=== PATIENT | male | born 1945 | race American Indian/Alaskan Native ===

== ENCOUNTER 2017-06-29 13:25 | Emergency (ER) | payer SELFPAY ==
[2017-06-29 15:04] VITALS: BP 125/80; PULSE 75; RESP 16; TEMP 97.9; O2SAT 100
--- NOTE | 2017-06-29 16:30 | ED PDOC ---
HPI: General Adult Time Seen by Provider: 06/29/17 13:56 Chief Complaint (Nursing): Lower Extremity Problem/Injury Chief Complaint (Provider): Generalized weakness History Per: Patient History/Exam Limitations: no limitations Onset/Duration Of Symptoms: Days (x1) Severity: None Pain Scale Rating Of: 0 Additional Complaint(s): Karson Yap is 72 year old male, with no past medical history, who was brought to the emergency department by EMS after he was found sleeping outside on the street. Patient has no medical complaints. He reports that he didn't sleep all night so he slept outside. He doesn't see any doctors. He wanted to eat kosher foot. He denies any suicidal or homicidal ideation, fever, chills or cough. No further medical complaints. PMD: None provided. Past Medical History Reviewed: Historical Data, Nursing Documentation, Vital Signs Vital Signs: Last Vital Signs Temp 97.9 F 06/29/17 14:00 Pulse 75 06/29/17 14:00 Resp 16 06/29/17 14:00 BP 125/80 06/29/17 14:00 Pulse Ox 100 06/29/17 14:00 - Family History Family History: States: Unknown Family Hx - Social History Current smoker - smoking cessation education provided: No Alcohol: Social Drugs: Denies - Allergies Allergies/Adverse Reactions: Allergies Allergy/AdvReac Type Severity Reaction Status Date / Time No Known Allergies Allergy Verified 06/29/17 13:29 Review of Systems ROS Statement: Except As Marked, All Systems Reviewed And Found Negative Constitutional: Negative for: Fever, Chills Respiratory: Negative for: Cough Psych: Negative for: Suicidal ideation (or homicidal ideation) Physical Exam - Reviewed Nursing Documentation Reviewed: Yes Vital Signs Reviewed: Yes - Physical Exam Appears: Positive for: Well (comfortable, and disheveled), Non-toxic, No Acute Distress Head Exam: Positive for: ATRAUMATIC, NORMAL INSPECTION, NORMOCEPHALIC Skin: Positive for: Normal Color, Warm, Dry Eye Exam: Positive for: EOMI, Normal appearance, PERRL Neck: Positive for: Normal, Painless ROM, Supple Cardiovascular/Chest: Positive for: Regular Rate, Rhythm Respiratory: Negative for: Respiratory Distress Extremity: Positive for: Normal ROM. Negative for: Deformity, Swelling Neurologic/Psych: Positive for: Alert, Oriented - ECG O2 Sat by Pulse Oximetry: 100 (RA) Pulse Ox Interpretation: Normal Medical Decision Making Medical Decision Making: Initial Impression: well adult check Initial Plan: -Upon provider evaluation patient is medically stable, and requires no further treatment in the ED at this time. Patient will be discharged Scribe Attestation: Documented by Nader Pathak, acting as a scribe for Raine Martinez MD Provider Scribe Attestation: All medical record entries made by the Scribe were at my direction and personally dictated by me. I have reviewed the chart and agree that the record accurately reflects my personal performance of the history, physical exam, medical decision making, and the department course for this patient. I have also personally directed, reviewed, and agree with the discharge instructions and disposition. Disposition - Clinical Impression Clinical Impression: Well adult health check - Disposition Referrals: [facility] [Outside] Disposition Time: 16:20 Condition: GOOD Additional Instructions: Follow up with your PCP as needed.
== END 2017-06-29 15:40 | disposition home or self-care (01) ==
LOC: H.ER 13:25
DX: M62.81 Muscle weakness (generalized) (principal)